=== PATIENT | male | born 1965 | race Caucasian/White ===

== ENCOUNTER 2021-09-05 12:38 | Emergency (ER) | payer OTHER ==
[2021-09-05 12:49] VITALS: BMI 32.9
[2021-09-05] MEDS ORDERED: ASPIRIN 81 MG CHEWABLE TABLETS PO ONE (13:38)
[2021-09-05] MEDS ORDERED: ASPIRIN 81 MG CHEWABLE TABLETS ONE (14:05)
[2021-09-05 14:56] LABS: BASO % 0.4 % (0-2.0); EOS % 0.3 % (0-4.5); HEMATOCRIT 45.9 % (35.4-49); HEMOGLOBIN 16.3 GM/dL (11.7-16.9); LYMPH % 11.6 % (8-40); MCH 31.7 pg (25.7-33.7); MCHC 35.6 g/dl (32.0-35.9); MEAN CELL VOLUME 89.1 fl (80-96); MEAN PLT VOLUME 8.8 fl (7.5-11.1); MONO % 7.3 % (3.8-10.2); NEUT % 80.4 % (42.8-82.8); PLATELET COUNT 160 10^3/uL (134-434); RBC 5.15 M/mm3 (4.00-5.60); RDW 13.7 % (11.9-15.9); WHITE BLOOD COUNT 10.2 K/mm3 (4.0-10.0)
[2021-09-05 15:00] LABS: INR 1.1 (0.83-1.09); PROTHROMBIN TIME (PATIENT) 12.9 SEC (9.7-13.0)
[2021-09-05 15:03] LABS: ACTIVATED PTT 33.8 SECONDS (25.2-36.5)
[2021-09-05 15:18] LABS: CHLORIDE 106 mmol/L (98-107); SODIUM 140 mmol/L (136-145)
[2021-09-05 15:19] LABS: ALBUMIN 4.2 g/dl (3.4-5.0); ANION GAP 9 MMOL/L (8-16); CO2 25 mmol/L (21-32); GLUCOSE,RANDOM 139 mg/dL (74-106); MAGNESIUM 2.3 mg/dL (1.8-2.4)
[2021-09-05 15:23] LABS: SGOT/AST 76 U/L (15-37); SGPT/ALT 138 U/L (13-61)
[2021-09-05 15:25] LABS: BILIRUBIN,TOTAL 1.1 mg/dL (0.2-1)
[2021-09-05 15:26] LABS: ALK PHOS 129 U/L (45-117)
[2021-09-05] MEDS ORDERED: CASIRIVIMAB/IMDEVIMAB 10 ML in SODIUM CHLORIDE 100 ML IVPB ONE (18:36)
[2021-09-05] MEDS ORDERED: ACETAMINOPHEN 500 MG TABLET (FP) ONE (19:04)
[2021-09-05 19:07] VITALS: TEMP 100.4
[2021-09-05] MEDS ORDERED: ACETAMINOPHEN 500 MG TABLET (FP) PO ONE (19:08)
[2021-09-05 20:27] VITALS: BP 124/70; PULSE 102
== END 2021-09-05 20:27 | disposition home or self-care (01) ==
LOC: JER 12:38
DX: U07.1 COVID-19 (principal)
CPT/HCPCS: 36415; 71046-TC-FY; 80053; 82550; 83735; 84484; 85025; 85610; 85730; 87804; 93005; 93010; 99285-25; C9803; Q0240; U0003; U0005

== ENCOUNTER 2022-09-05 19:44 | Emergency (ER) | payer OTHER ==
[2022-09-05 20:01] VITALS: BP 132/80; PULSE 98; RESP 18; TEMP 100.7; BMI 31.6
[2022-09-05] MEDS ORDERED: KETOROLAC TROMETHAMINE 30 MG/1 ML VIAL IM ONE (21:19)
[2022-09-05] MEDS ORDERED: KETOROLAC TROMETHAMINE 30 MG/1 ML VIAL ONE (21:26)
== END 2022-09-05 21:52 | disposition home or self-care (01) ==
LOC: JER 19:44
PROC: 3E0333Z Introduction of Anti-inflammatory into Peripheral Vein, Percutaneous Approach (ICD-10-PCS; principal; 2022-09-05)
DX: J09.X2 Influenza due to identified novel influenza A virus with other respiratory manifestations (principal); R05.1 Acute cough; R50.9 Fever, unspecified
CPT/HCPCS: 0241U-QW; 99284-25

== ENCOUNTER 2024-04-12 11:26 | Emergency (ER) | payer OTHER ==
[2024-04-12 12:11] VITALS: RESP 18; BMI 34.0
[2024-04-12 13:55] VITALS: BP 118/71; PULSE 91; TEMP 98.2
== END 2024-04-12 14:18 | disposition home or self-care (01) ==
LOC: JER 11:26
DX: R07.81 Pleurodynia (principal); M25.522 Pain in left elbow; W17.89XA Other fall from one level to another, initial encounter; Y93.01 Activity, walking, marching and hiking
CPT/HCPCS: 71046-TC-FY; 72100-TC-FY; 99284-25